=== PATIENT | male | born 1990 | race Caucasian/White ===

== ENCOUNTER 2016-05-25 23:58 | Emergency (ER) | payer OTHER ==
[2016-05-26 01:50] LABS: BASOPHILS 0.1 %; BASOPHILS ABSOLUTE 0.02 10/3/uL (0.0-0.16); EOSINOPHILS 0.4 %; EOSINOPHILS ABSOLUTE 0.05 10/3/uL (0.0-0.53); HEMATOCRIT 43.3 % (40.0-51.0); HEMOGLOBIN 14.6 g/dL (13.6-17.8); IMMATURE GRANULOCYTES 0.1 %; IMMATURE GRANULOCYTES ABSOLUTE 0.02 10/3/uL (0.0-0.11); LYMPHOCYTES 22.6 %; LYMPHOCYTES ABSOLUTE 3.06 10/3/uL (0.67-4.30); MEAN CORPUS HGB CONC 33.7 g/dL (32.0-36.0); MEAN CORPUSCULAR HEMOGLOB 29.4 pg (26.0-34.0); MEAN CORPUSCULAR VOLUME 87.1 fL (80-100); MEAN PLATELET VOLUME 10.2 fL (9.2-13.0); MONOCYTES 5.2 %; MONOCYTES ABSOLUTE 0.71 10/3/uL (0.21-1.20); NEUTROPHILS 71.6 %; NEUTROPHILS ABSOLUTE 9.69 10/3/uL (2.02-8.40); PLATELET COUNT 238 10/3/uL (150-400); RBC DISTRIBUTION WIDTH 12.9 % (12.0-16.0); RED CELL COUNT 4.97 10/6/uL (4.7-6.1)
[2016-05-26 01:51] LABS: MANUAL DIFF NO %; WHITE BLOOD CELLS 13.6 10/3/uL (4.5-10.5)
[2016-05-26 02:01] LABS: PARTIAL THROMBO TIME 23.5 SEC (22.5-37.2)
[2016-05-26 02:05] LABS: D-DIMER QUANTITATIVE 0.29 ug/mLFEU (< 0.50)
[2016-05-26 02:06] LABS: ALBUMIN 4.3 G/DL (3.5-5.0); ALKALINE PHOSPHATASE 60 U/L (45-117); CHEST PAIN PROFILE TAT 0 Hrs 21 Mins; CHLORIDE, SERUM 105 MMOL/L (96-112); CO2 (CARBON DIOXIDE) 28 MMOL/L (24-34); CREATININE 1.12 MG/DL (0.70-1.30); GFR AFRICAN AMERICAN 105 ML/MIN (>=60); GFR NON AFRICAN AMERICAN 90 ML/MIN (>=60); GLUCOSE, SERUM 99 MG/DL (60-99); POTASSIUM, SERUM 4.2 MMOL/L (3.5-5.3); SGOT(AST) 38 U/L (5-40); SGPT(ALT) 53 U/L (5-65); SODIUM, SERUM 142 MMOL/L (135-148); TOTAL BILIRUBIN 0.4 MG/DL (0-1.2); TOTAL PROTEIN 7.7 G/DL (6.0-8.5); TROPONIN I <0.02 NG/ML (<0.05)
[2016-05-26 02:07] LABS: BUN (BLOOD UREA NITROGEN) 23 MG/DL (6-23); C-REACTIVE PROTEIN < 2.9 MG/L (<8.0); DIRECT BILIRUBIN < 0.1 MG/DL (0.0-0.4); INDIRECT BILIRUBIN(NOT ORDER) 0.3 MG/DL (0.1-0.9); INTERNATIONAL NORMAL RATI 1.1 UNITS (-); PROTIME (NOT ORD) 13.6 SEC (12.0-14.5)
== END 2016-05-26 03:15 | disposition home or self-care (01) ==
LOC: ER 23:58
PROVIDERS: Specialist
DX: R07.89 Other chest pain (principal)
CPT/HCPCS: 71020; 80048; 80076; 83735; 84484; 85025; 85379; 85610; 85652; 85730; 86140; 93005; 96374; 99285; J1885